=== PATIENT | female | born 1980 | race Two or more races ===

== ENCOUNTER 2025-03-29 08:12 | Emergency (ER) | payer MEDICAID, SELFPAY ==
[2025-03-29 08:25] VITALS: BP 151/88; PULSE 92; RESP 18; TEMP 36.7; O2SAT 99; BMI 57.9
--- NOTE | 2025-03-29 08:26 | XR_ITS ---
Examination: CT abdomen and pelvis without contrast. Coronal 3-D reconstructions. Sagittal 2-D reconstructions. Date and time of exam: March 29, 2025, 10:40 a.m. INDICATIONS: Lower abdominal pain today CTDI: vol (mGy): 23.1 DLP: (mGycm): 1670 Technique: Axial images of the abdomen have been obtained, 3 mm slice thickness Intravenous contrast material has not been administered. Low dose protocols were performed. One or more of the following dose reduction techniques were used; automated exposure control, adjustment of the mA and/or KV according to patient size, use of iterative reconstruction technique. Findings: No focal liver or splenic lesions No gallstones No pancreatic or adrenal mass No renal or ureteral calculi, no hydronephrosis Aorta normal size. No pericecal inflammatory change Colonic diverticulosis There is mild inflammatory change about the sigmoid colon axial image 203 Urinary bladder intact No pelvic mass IMPRESSION: Suspicious for early sigmoid diverticulitis, no diverticular abscess
--- NOTE | 2025-03-29 08:27 | PD.EDRME ---
Rapid Medical Screening Exam RME Arrival date/time: 03/29/25 08:12 45-year-old female presents to the emergency department with complaints of nausea and abdominal pain ongoing since Thursday Chief Complaint: Abdominal Pain
[2025-03-29] MEDS: KETOROLAC INJ 30 MG/ML VIAL IM (08:36)
[2025-03-29] MEDS: METOCLOPRAMIDE 5 MG TABLET 10 MG PO (08:36)
[2025-03-29 08:56] LABS: Basophils # (Auto) 0.1 Thou/mm3 (0.0-0.2); Basophils % (Auto) 1 % (0-2.5); Eosinophils # (Auto) 0.1 Thou/mm3 (0.0-0.5); Eosinophils % (Auto) 1 % (0-10); Hematocrit 34.9 % (36.0-46.0); Hemoglobin 10.9 g/dL (12.0-16.0); Immature Granulocytes Auto 0.02 Thou/mm3 (0.00-0.00); Lymphocytes # (Auto) 2.3 Thou/mm3 (1.0-4.8); Lymphocytes % (Auto) 21 % (10-50); Mean Corpuscular HGB Conc 31.2 g/dl (31.0-37.0); Mean Corpuscular Hemoglobin 25.9 pg (25.0-35.0); Mean Corpuscular Volume 83 fL (80-100); Monocytes # (Auto) 0.8 Thou/mm3 (0.0-0.8); Monocytes % (Auto) 7 % (0-12); Neutrophils # (Auto) 7.9 Thou/mm3 (1.8-7.7); Neutrophils % (Auto) 71 % (37-80); Nucleated Red Blood Cell # 0.00 Thou/mm3 (0.00-0.00); Nucleated Red Blood Cell % 0 /100 WBC (0); Platelet Count 436 Thou/mm3 (140-440); RDW Standard Deviation 46.9 fL (36.4-46.3); Red Blood Count 4.21 Miln/mm3 (4.00-5.20); White Blood Count 11.2 Thou/mm3 (3.6-11.0)
[2025-03-29 09:09] LABS: Alanine Aminotransferase < 7 U/L (10-49); Albumin, Serum 4.2 gm/dL (3.5-5.0); Albumin/Globulin Ratio 1.4 (1.2-2.2); Alkaline Phosphatase 97 U/L (46-116); Anion Gap 9 (7-16); Aspartate Amino Transferase 15 U/L (0-34); BUN/Creatinine Ratio 13 Ratio (12-20); Bilirubin,Total 0.7 mg/dL (0.3-1.2); Blood Urea Nitrogen 8 mg/dL (9-23); Calcium 9.3 mg/dL (8.3-10.6); Calcium (Corrected) 9.3 mg/dL (8.5-10.1); Carbon Dioxide 25.3 mMol/L (20.0-31.0); Chloride 102 mMol/L (98-107); Creatinine (Component) 0.6 mg/dL (0.6-1.3); Estimated Creatinine Clearance 184.3 mL/min (>60); Globulin 3.1 gm/dL (2.3-3.5); Glucose 133 mg/dL (74-106); Lipase 24 U/L (12-53); Osmolality,Calculated 272 (275-295); Potassium 4.0 mMol/L (3.4-5.1); Sodium 136 mMol/L (136-145); Total Protein 7.3 gm/dL (5.7-8.2); eGFR > 60 See Note
[2025-03-29 10:03] LABS: Collection Type, Urine Clean Catch
[2025-03-29 10:07] LABS: HCG Qualitative,Urine Negative
[2025-03-29 10:22] LABS: Bacteria,Urine Rare; Bilirubin,Urine Negative (Negative); Blood,Urine Negative (Negative); Clarity,Urine Hazy (Clear/Hazy); Color,Urine Yellow (Lt Yel-Yel); Culture Indicated,Urine Not Indicated; Glucose, Urine Negative (Negative); Ketones,Urine Negative (Negative); Leukocyte Esterase,Urine Negative (Negative); Nitrite,Urine Negative (Negative); PH,Urine 7.5 (5.0-7.0); Protein,Urine 1+ (Neg - Trace); RBC,Urine 8 /hpf (0-3); Specific Gravity,Urine 1.029 (1.001-1.035); Squamous Epithelial Cell,Urine 6 /hpf (0-5); Urobilinogen,Urine 4.0 mg/dL (0.0-1.0); WBC,Urine 2 /hpf (0-5)
--- NOTE | 2025-03-29 13:07 | EDNOTE_ITS ---
ED Abdominal Pain RME/HPI General Chief Complaint: Abdominal Pain Stated complaint: ABD PAIN Time seen by provider: 03/29/25 13:07 Arrival date/time: 03/29/25 08:12 RME / HPI RME / HPI narrative: 03/29/25 08:12 45-year-old female presents to the emergency department with complaints of nausea and abdominal pain ongoing since Thursday Related Data Previous Rx's ?Medication ?Instructions ?Recorded dicyclomine 20 mg tablet 20 mg PO Q8HR PRN Abdominal cramps 03/21/19 #10 tabs ondansetron 4 mg disintegrating 4 mg PO Q8H PRN nausea and 03/21/19 tablet vomiting #5 tabs hydrocodone 5 mg-acetaminophen 325 1 tab PO BID PRN pa in #10 tabs 01/05/ mg tablet ([place]) acetaminophen 325 mg capsule 975 mg (3 x 325 mg) PO Q6 H PRN 06/13/20 pain #30 caps azithromycin 250 mg tablet See Rx Instructions PO .COM PLEX #6 06/13/20 tabs dexamethasone 6 mg tablet 6 mg PO QDAY #7 tabs 06/17/ 1 (Decadron) acetaminophen 300 mg-codeine 30 mg 1 tab PO Q6H PRN pa in #3 tabs 03/29/25 tablet amoxicillin 875 mg-potassium 1 tab PO Q8H 10 days #30 tabs 03/29/25 clavulanate 125 mg tablet ondansetron 4 mg disintegrating 4 mg PO Q8H PRN nausea and 03/29/25 tablet vomiting #12 tabs Allergies Allergy/AdvReac Type Severity Reaction Status Date / Time No Known Allergies Allergy Verified 03/29/25 08:14 Past Medical History Past Medical History CARDIAC: Negative Congestive Heart Failure RESPIRATORY: Negative Chronic Obstructive Pulmonary Disease (COPD) GASTROINTESTINAL: Positive Obesity GENITOURINARY: Negative Renal Disease ENDOCRINE: Negative Diabetes Mellitus Type 1 or Diabetes Mellitus Type 2 Family History FAMILY HISTORY: Negative Family Neurologic Problems Surgical History SURGICAL: Positive Abdominal Surgery Social History SMOKING STATUS: Never smoker SUBSTANCE USE: does not use ED Exam Narrative Physical exam: Constitutional: Patient alert and oriented. Well appearing. No acute distress. Not toxic appearing. Head: Normocephalic, atraumatic. Eyes: Periorbital regions bilaterally normal to inspection. Conjunctiva clear bilaterally. Sclera anicteric bilaterally. Pupils equal, round, reactive to light bilaterally. Extraocular movements intact bilaterally. Mouth/Throat: Mucous membranes moist. No stridor or muffled voice. No trismus. Handling secretions without difficulty. Airway widely patent. Neck: Supple. Trachea midline. No JVD. No nuchal rigidity. Normal range of motion. Respiratory: Normal effort. No accessory muscle use or respiratory distress. Lungs clear to auscultation bilaterally without rhonchi, wheezes, or crackles. Cardiovascular: RRR. Normal S1/S2. No murmurs or rubs. Radial pulses intact bilaterally. Abdomen: Soft. Non-distended. Positive mild left lower quadrant tenderness to palpation. No pulsatile mass. No guarding or rebound. Negative Trotter?s sign. Negative McBurney?s point tenderness. Negative Rovsing?s. Back: No midline tenderness or step-offs. No CVA tenderness to palpation bilaterally. Upper Extremities: No gross deformities. Lower Extremities: No gross deformities. No edema or calf tenderness. Neuro: Speech normal. No gross motor or sensory deficits to upper or lower extremities bilaterally. GCS 15. CN II?XII grossly intact. Skin: Warm, dry, normal color. Psych: Normal affect. Cooperative. Normal insight. Course Course Course Narrative: MDM 45-year-old healthy female presents to the ER complaining of abdominal pain and nausea for the past 3 days. Denies diarrhea, vomiting, fever. Concern for uncomplicated diverticulitis with mild inflammatory changes of the sigmoid colon White blood cell count minimally elevated 11 Glucose minimally elevated 133 otherwise no severe metabolic or electrolyte abnormality UA with protein, rare bacteria microscopic hematuria with 8 RBCs and 6 squamous cells concerning for contamination CT without signs of abscess or perforation, modified Hinchey score of 1 Plan for low fiber diet, Augmentin, follow-up with PMD in 1 to 2 days, follow-up with GI within 6 weeks for colonoscopy, strict ER return precautions advised Quality Measures none Orders Category Date Time Status CT abdomen pelvis wo con Stat Exams 03/29/25 08:26 Completed CBC Stat Lab 03/29/25 08:33 Completed Comprehensive Metabolic Panel Stat Lab 03/29/25 08:33 Completed HCG Qualitative,Urine Stat Lab 03/29/25 09:45 Completed Lipase Stat Lab 03/29/25 08:33 Completed UA, C/S IF [Urinalysis, C/S if Indicated] Stat Lab 03/29/25 09:45 Completed Amoxicillin/Pot Clav 875 [Augmentin 875] Med 03/29/25 13:16 Discontinued 1 tab PO X1 ONE HYDROcodone*/APAP 5/325 [[place] 5/325] Med 03/29/25 13:17 Discontinued 1 tab PO X1 ONE Ketorolac Inj [Toradol Inj] Med 03/29/25 08:27 Discontinued 30 mg IM X1 ONE Metoclopramide [Reglan] Med 03/29/25 08:27 Discontinued 10 mg PO X1 ONE Reevaluation(s) Reevaluation #1: At the time of reassessment, the patient remains alert and oriented ?3 with GCS 15. Vitals are normal, pain is controlled, and the patient is tolerating oral intake without nausea or vomiting. The patient is agreeable to discharge and verbalizes understanding of the diagnosis, studies, treatment plan, medications (including side effects/precautions), and strict ER return precautions as discussed in the ED. All concerns were addressed, and the patient is comfortable with the plan. Abdomen remains soft and nontender to palpation without peritonitis. Vital Signs Vital signs: Vital Signs Temperature 98.1 F 03/29/25 08:25 Pulse Rate 92 03/29/25 08:25 Respiratory Rate 18 03/29/25 08:25 Blood Pressure 151/88 H 03/29/25 08:25 Pulse Oximetry (%) 99 03/29/25 08:25 Oxygen Delivery Method Room Air 03/29/25 08:25 Abdominal Pain MDM MDM Narrative MDM Narrative:: As noted in course Patient data External records reviewed:: None Clinical information provided by:: patient Social determinants that could affect healthcare access:: none Patient has the following chronic illnesses:: As noted How is presenting disease/condition affected by chronic disease/condition?: uneffected by Evaluation data The following diagnostics were reviewed and interpreted by me:: lab results and radiology exam(s) Lab and/or radiology exams considered but not ordered:: Ordered Interpretation Summary: Reviewed Medications / Prescriptions Medications or Prescriptions considered but not ordered:: Ordered Medication administrations:: Medication Administration History Discontinued Medications Hydrocodone Bitart/Acetaminophen (Hydrocodone/Apap 5/325 Tablet) 1 tab PO X1 ONE Stop: 03/29/25 13:18 Last Admin: 03/29/25 13:24 Dose: 1 tab Documented By: EF Amoxicillin/Clavulanate Potassium (Amoxicillin/Pot Clav 875 Tablet) 1 tab PO X1 ONE Stop: 03/29/25 13:17 Last Admin: 03/29/25 13:24 Dose: 1 tab Documented By: EF Ketorolac Tromethamine (Ketorolac Inj 30 Mg/Ml Vial) 30 mg IM X1 ONE Stop: 03/29/25 08:28 Last Admin: 03/29/25 08:36 Dose: 30 mg Documented By: EF Metoclopramide HCl (Metoclopramide 5 Mg Tablet) 10 mg PO X1 ONE Stop: 03/29/25 08:28 Last Admin: 03/29/25 08:36 Dose: 10 mg Documented By: EF Ordered Consultations Consultation(s) initiated? (list below): No Diagnosis Differential diagnosis abdominal pain: abdominal pain Most likely diagnosis given after review of the tests above:: As noted Admission Indicated Admission indicated?: not indicated Admission Request Was there a request for admission?: No Disposition Plan Disposition Plan: Discharge Discharge Attestation Discharge Attestation: The patient and all family members were given an opportunity to ask questions and understood the discharge instructions. Discharge instructions specifically effects, indications for sooner follow up or return to the emergency department, and the expected course of current diagnosis. Patient condition: Stable Discharge Plan Prescriptions/Referrals Prescriptions/Med Rec: New amoxicillin-pot clavulanate 875-125 mg tablet 1 tab PO Q8H 10 Days Qty: 30 0RF acetaminophen-codeine 300-30 mg tablet 1 tab PO Q6H PRN (Reason: pain) Qty: 3 0RF ondansetron 4 mg tablet,disintegrating 4 mg PO Q8H PRN (Reason: nausea and vomiting) Qty: 12 0RF Rx Instructions: 1-2 tabs PO Q8Hr prn nausea or vomit No Action dicyclomine 20 mg tablet 20 mg PO Q8HR PRN (Reason: Abdominal cramps) Qty: 10 0RF ondansetron 4 mg tablet,disintegrating 4 mg PO Q8H PRN (Reason: nausea and vomiting) Qty: 5 0RF hydrocodone-acetaminophen [[place]] 5-325 mg tablet 1 tab PO BID MDD 10mg PRN (Reason: pain) Qty: 10 0RF azithromycin 250 mg tablet See Rx Instructions .ROUTE .COMPLEX Qty: 6 0RF Rx Instructions: take 500 mg today (day 1), then 250 mg for 4 days (days 2-5) acetaminophen 325 mg capsule 975 mg PO Q6H PRN (Reason: pain) Qty: 30 0RF dexamethasone [Decadron] 6 mg tablet 6 mg PO QDAY Qty: 7 0RF Referrals: Henri [facility] [Primary Care Provider] - In 1 week Problem List Clinical Impression: Diverticulitis Patient/Caregiver Discharge Instructions Diet Instructions: Clear liquid diet advance as tolerated, low fiber diet. Education Materials: ED Diverticulitis Additional Instructions: Follow up with your primary medical doctor within 24 hours. Return to the Emergency Room immediately for any new, worsening, continuing symptoms or any concerns at all. Return to the Emergency Room within 24 hours if you are unable to follow up with your primary medical doctor within 24 hours. Follow-up with a GI doctor this week as well as you will need a colonoscopy within 6 weeks. Print Language: Singaporean PA/REYNOLD Supervising Physician PA/MANAGER MONEY Supervising Physician: Dr. Morrell
[2025-03-29] MEDS: AMOXICILLIN/POT CLAV 875 TABLET 1 TAB PO (13:24)
[2025-03-29] MEDS: HYDROcodone/APAP 5/325 TABLET 1 TAB PO (13:24)
== END 2025-03-29 13:34 | disposition home health service (06) ==
LOC: SERX 09:02
PROVIDERS: Nurse Practitioner Primary Care; Emergency Provider Emergency Medicine; PCP Physician Assistant
DX: K57.32 Diverticulitis of large intestine without perforation or abscess without bleeding (principal)
CPT/HCPCS: 36415; 74176; 80053; 81001; 81025; 83690; 85025; 96372; 99283; J1885; A9270

== ENCOUNTER 2025-04-04 08:15 | Emergency (ER) | payer MEDICAID, SELFPAY ==
[2025-04-04 08:20] VITALS: BP 144/96; PULSE 85; RESP 18; TEMP 36.9; O2SAT 95
--- NOTE | 2025-04-04 08:25 | XR_ITS ---
Examination: CT abdomen and pelvis without contrast. Coronal 3-D reconstructions. Sagittal 2-D reconstructions. Date and time of exam: April 04, 2025, 1038 hours, comparison March 29, 2025 INDICATIONS: Onset generalized abdominal pain today CTDI: vol (mGy): 22.1 DLP: (mGycm): 1545 Technique: Axial images of the abdomen have been obtained, 3 mm slice thickness Intravenous contrast material has not been administered. Low dose protocols were performed. One or more of the following dose reduction techniques were used; automated exposure control, adjustment of the mA and/or KV according to patient size, use of iterative reconstruction technique. Findings: No focal liver or splenic lesions No gallstones No pancreatic or adrenal mass No renal or ureteral calculi, no hydronephrosis Aorta normal size No bowel obstruction No pericecal inflammatory change Mild inflammatory change in the sigmoid colon No peridiverticular abscess No pelvic mass Contracted urinary bladder Diffuse advanced lumbar degenerative disc disease IMPRESSION: Suspicious for early acute sigmoid diverticulitis, no peridiverticular abscess
--- NOTE | 2025-04-04 08:26 | PD.EDRME ---
Rapid Medical Screening Exam RME Arrival date/time: 04/04/25 08:15 45-year-old female with no known medical history presents to the emergency room with a chief complaint of left lower quadrant abdominal pain x 4 days I have greeted and performed a focused initial assessment of this patient. A comprehensive ED assessment and evaluation of the patient, analysis of all test results, and completion of the medical decision making process will be conducted by additional ED providers. Chief Complaint: Abdominal Pain Vital signs: Vital Signs Temperature 98.5 F 04/04/25 08:20 Pulse Rate 85 04/04/25 08:20 Respiratory Rate 18 04/04/25 08:20 Blood Pressure 144/96 H 04/04/25 08:20 Pulse Oximetry (%) 95 04/04/25 08:20 Oxygen Delivery Method Room Air 04/04/25 08:20 Vital signs reviewed by provider: Yes
[2025-04-04 08:50] LABS: Basophils # (Auto) 0.0 Thou/mm3 (0.0-0.2); Basophils % (Auto) 1 % (0-2.5); Eosinophils # (Auto) 0.1 Thou/mm3 (0.0-0.5); Eosinophils % (Auto) 1 % (0-10); Hematocrit 35.9 % (36.0-46.0); Hemoglobin 11.4 g/dL (12.0-16.0); Immature Granulocytes Auto 0.01 Thou/mm3 (0.00-0.00); Lymphocytes # (Auto) 1.0 Thou/mm3 (1.0-4.8); Lymphocytes % (Auto) 18 % (10-50); Mean Corpuscular HGB Conc 31.8 g/dl (31.0-37.0); Mean Corpuscular Hemoglobin 26.2 pg (25.0-35.0); Mean Corpuscular Volume 83 fL (80-100); Monocytes # (Auto) 0.7 Thou/mm3 (0.0-0.8); Monocytes % (Auto) 12 % (0-12); Neutrophils # (Auto) 4.0 Thou/mm3 (1.8-7.7); Neutrophils % (Auto) 68 % (37-80); Nucleated Red Blood Cell # 0.00 Thou/mm3 (0.00-0.00); Nucleated Red Blood Cell % 0 /100 WBC (0); Platelet Count 336 Thou/mm3 (140-440); RDW Standard Deviation 46.4 fL (36.4-46.3); Red Blood Count 4.35 Miln/mm3 (4.00-5.20); White Blood Count 5.9 Thou/mm3 (3.6-11.0)
[2025-04-04] MEDS: ONDANSETRON ODT 4 MG TABRAP PO (08:55)
[2025-04-04] MEDS: HYDROcodone/APAP 5/325 TABLET 1 TAB PO (08:55)
[2025-04-04 09:15] LABS: Collection Type, Urine Clean Catch
[2025-04-04 09:23] LABS: Bilirubin,Urine Negative (Negative); Blood,Urine Negative (Negative); Color,Urine Yellow (Lt Yel-Yel); Glucose, Urine Negative (Negative); Ketones,Urine Trace (Negative); Leukocyte Esterase,Urine Positive (Negative); Nitrite,Urine Negative (Negative); PH,Urine 6.5 (5.0-7.0); Protein,Urine Trace (Neg - Trace); RBC,Urine 9 /hpf (0-3); Specific Gravity,Urine 1.020 (1.001-1.035); Squamous Epithelial Cell,Urine 7 /hpf (0-5); Urobilinogen,Urine 2.0 mg/dL (0.0-1.0); WBC,Urine 4 /hpf (0-5)
[2025-04-04 09:35] LABS: Clarity,Urine Hazy (Clear/Hazy)
[2025-04-04 09:39] LABS: HCG Qualitative,Urine Negative
[2025-04-04 09:42] LABS: Alanine Aminotransferase 16 U/L (10-49); Alkaline Phosphatase 81 U/L (46-116); Anion Gap 8 (7-16); Aspartate Amino Transferase 32 U/L (0-34); BUN/Creatinine Ratio 10 Ratio (12-20); Bilirubin,Total 0.4 mg/dL (0.3-1.2); Blood Urea Nitrogen 7 mg/dL (9-23); Calcium 8.9 mg/dL (8.3-10.6); Carbon Dioxide 27.3 mMol/L (20.0-31.0); Chloride 102 mMol/L (98-107); Creatinine (Component) 0.7 mg/dL (0.6-1.3); Estimated Creatinine Clearance 158.3 mL/min (>60); Glucose 111 mg/dL (74-106); Lipase 24 U/L (12-53); Osmolality,Calculated 272 (275-295); Potassium 4.4 mMol/L (3.4-5.1); Sodium 137 mMol/L (136-145); Total Protein 7.1 gm/dL (5.7-8.2); eGFR > 60 See Note
[2025-04-04 09:58] LABS: Albumin, Serum 4.2 gm/dL (3.5-5.0); Albumin/Globulin Ratio 1.4 (1.2-2.2); Calcium (Corrected) 8.9 mg/dL (8.5-10.1); Globulin 2.9 gm/dL (2.3-3.5)
[2025-04-04 11:16] VITALS: BP 130/80; PULSE 62; RESP 18; TEMP 36.8; O2SAT 97
--- NOTE | 2025-04-04 11:31 | PC.NURSE ---
Patient presents to ED with c/o lower abd pain and nausea since , denies constipation/diarrhea. Patient a/o x4, ambulatory w/o assisstance. Patient updated with plan of care pending MD review.
--- NOTE | 2025-04-04 11:51 | PD.EDABDPN ---
ED Abdominal Pain RME/HPI General Chief Complaint: Abdominal Pain Stated complaint: ABD PAIN AND BLOATING Time seen by provider: 04/04/25 11:43 Arrival date/time: 04/04/25 08:15 Limitations: no limitations RME / HPI RME / HPI narrative: 04/04/25 08:15 45-year-old female with no known medical history presents to the emergency room with a chief complaint of left lower quadrant abdominal pain x 4 days I have greeted and performed a focused initial assessment of this patient. A comprehensive ED assessment and evaluation of the patient, analysis of all test results, and completion of the medical decision making process will be conducted by additional ED providers. Dr. Dhaliwal evaluation. Patient is a 45-year-old female medical history notable for chronic back pain that seen emerged primary concerns for abdominal pain. Denies fevers chills nausea vomiting dysuria hematuria melena bloody stools drugs alcohol smoking recent travel sick contacts Related Data Previous Rx's ?Medication ?Instructions ?Recorded dicyclomine 20 mg tablet 20 mg PO Q8HR PRN Abdominal cramps 03/21/19 #10 tabs ondansetron 4 mg disintegrating 4 mg PO Q8H PRN nausea and 03/21/19 tablet vomiting #5 tabs hydrocodone 5 mg-acetaminophen 325 1 tab PO BID PRN pain #10 tabs 01/05/ mg tablet ([place]) acetaminophen 325 mg capsule 975 mg (3 x 325 mg) PO Q6H PRN 06/13/20 pain #30 caps azithromycin 250 mg tablet See Rx Instructions PO .COMPLEX #6 06/13/20 tabs dexamethasone 6 mg tablet 6 mg PO QDAY #7 tabs 06/17/20 (Decadron) acetaminophen 300 mg-codeine 30 mg 1 tab PO Q6H PRN pain #3 tabs 03/29/25 tablet amoxicillin 875 mg-potassium 1 tab PO Q8H 10 days #30 tabs 03/29/25 clavulanate 125 mg tablet ondansetron 4 mg disintegrating 4 mg PO Q8H PRN nausea and 03/29/25 tablet vomiting #12 tabs ciprofloxacin HCl 500 mg tablet 500 mg PO Q12H 5 days #10 tabs 04/04/25 metronidazole 500 mg tablet 500 mg PO Q8H #15 tabs 04/04/25 polyethylene glycol 3350 17 4 g PO QDAY #119 grams 04/04/25 gram/dose oral powder (Miralax) Allergies Allergy/AdvReac Type Severity Reaction Status Date / Time No Known Allergies Allergy Verified 04/04/25 08:18 ED Exam General Limitations: Present no limitations General appearance: Present alert and in no apparent distress Head Head exam: Present atraumatic and normocephalic Eye Eye exam: Present normal appearance and PERRL ENT ENT exam: Present normal exam Neck Neck exam: Present normal inspection Chest Chest inspection: Present symmetric chest wall rise Respiratory Respiratory exam: Absent respiratory distress Cardiovascular Cardiovascular exam: Present regular rate and normal rhythm Abdominal Exam Abdominal exam: Present tenderness (Left lower quadrant); Absent distention Extremities Exam Extremities exam: Present normal inspection Neurological Exam Neurological exam: Present alert, oriented X3, CN II-XII intact and other (No gross focal neurodeficit) Psychiatric Psychiatric exam: Present normal affect Course Quality Measures none Orders Category Date Time Status CT abdomen pelvis wo con Stat Exams 04/04/25 08:25 Completed CBC Stat Lab 04/04/25 08:40 Completed CMP [Comprehensive Metabolic Panel] Stat Lab 04/04/25 08:40 Completed HCG Qualitative,Urine Stat Lab 04/04/25 09:07 Completed Lipase Stat Lab 04/04/25 08:40 Completed UA [Urinalysis] Stat Lab 04/04/25 09:07 Completed Urine Culture Stat Lab 04/04/25 09:07 Received Ciprofloxacin HCl [Ciprofloxacin] Med 04/04/25 12:03 Discontinued 500 mg PO X1 ONE HYDROcodone*/APAP 5/325 [[place] 5/325] Med 04/04/25 08:26 Discontinued 1 tab PO X1 ONE Ketorolac Inj [Toradol Inj] Med 04/04/25 12:14 Discontinued 15 mg IM X1 ONE Ondansetron Odt [Zofran Odt] Med 04/04/25 08:26 Discontinued 4 mg PO X1 ONE metroNIDAZOLE [Flagyl] Med 04/04/25 12:03 Discontinued 500 mg PO X1 ONE Vital Signs Vital signs: Vital Signs Temperature 98.5 F 04/04/25 08:20 Pulse Rate 85 04/04/25 08:20 Respiratory Rate 18 04/04/25 08:20 Blood Pressure 144/96 H 04/04/25 08:20 Pulse Oximetry (%) 95 04/04/25 08:20 Oxygen Delivery Method Room Air 04/04/25 08:20 Abdominal Pain [facility] Narrative [facility] Narrative:: Patient is a 45-year-old female seen emerged from concerns for abdominal pain. Vital signs and exam as listed. Prior provider evaluated patient. Concern for urinary tract infection, pancreatitis, diverticulitis recurrence, urolithiasis among others. Ordered labs CT abdomen pelvis. Labs without acute hematologic abnormality, no significant acute metabolic disturbance, lipase not elevated urinalysis leukocyte Estrace positive for white blood cells 9 red blood cells 7 squamous cells no bacteria no nitrite patient without dysuria less likely urinary tract infection. CT abdomen pelvis without contrast notable for possible early sigmoid diverticulitis. On my evaluation patient hemodynamically stable not distressed. Provided her with additional dose of pain medication. Patient states that she has been on amoxicillin for couple days, advised her that I was changing her antibiotics recommended that she sees a wood finisher as well as her primary care doctor. Advised her to avoid opiates given that they contribute to constipation. Advised her on increasing her fiber intake, and fluid intake to avoid constipation. Patient is hemodynamically stable nondistressed with discharge home close return precautions follow-up with her primary care doctor. All questions answered Patient data External records reviewed:: [facility] previous records Clinical information provided by:: patient Social determinants that could affect healthcare access:: none Patient has the following chronic illnesses:: None How is presenting disease/condition affected by chronic disease/condition?: uneffected by Evaluation data The following diagnostics were reviewed and interpreted by me:: lab results and radiology exam(s) Lab and/or radiology exams considered but not ordered:: None Interpretation Summary: See MDM Medications / Prescriptions Medications or Prescriptions considered but not ordered:: None Medication administrations:: Medication Administration History Discontinued Medications Hydrocodone Bitart/Acetaminophen (Hydrocodone/Apap 5/325 Tablet) 1 tab PO X1 ONE Stop: 04/04/25 08:27 Last Admin: 04/04/25 08:55 Dose: 1 tab Documented By: GM Ciprofloxacin (Ciprofloxacin Hcl 250 Mg Tablet) 500 mg PO X1 ONE Stop: 04/04/25 12:04 Last Admin: 04/04/25 12:39 Dose: 500 mg Documented By: OA Ketorolac Tromethamine (Ketorolac Inj 30 Mg/Ml Vial) 15 mg IM X1 ONE Stop: 04/04/25 12:15 Last Admin: 04/04/25 12:38 Dose: 15 mg Documented By: OA Metronidazole (Metronidazole 250 Mg Tablet) 500 mg PO X1 ONE Stop: 04/04/25 12:04 Last Admin: 04/04/25 12:39 Dose: 500 mg Documented By: ASHWIN Ondansetron HCl (Ondansetron Odt 4 Mg Tabrap) 4 mg PO X1 ONE; Protocol Stop: 04/04/25 08:27 Last Admin: 04/04/25 08:55 Dose: 4 mg Documented By: GM See above Consultations Consultation(s) initiated? (list below): No Diagnosis Differential diagnosis abdominal pain: other Most likely diagnosis given after review of the tests above:: Diverticulitis, abdominal pain Admission Indicated Admission indicated?: not indicated Admission Request Was there a request for admission?: No Disposition Plan Disposition Plan: Discharge Discharge Attestation Discharge Attestation: The patient and all family members were given an opportunity to ask questions and understood the discharge instructions. Discharge instructions specifically effects, indications for sooner follow up or return to the emergency department, and the expected course of current diagnosis. Patient condition: Stable Discharge Plan Plan Patient Disposition: HOME (Self Care) Prescriptions/Referrals Prescriptions/Med Rec: New ciprofloxacin HCl 500 mg tablet 500 mg PO Q12H 5 Days Qty: 10 0RF metronidazole 500 mg tablet 500 mg PO Q8H Qty: 15 0RF polyethylene glycol 3350 [Miralax] 17 gram/dose powder 4 g PO QDAY Qty: 119 0RF No Action dicyclomine 20 mg tablet 20 mg PO Q8HR PRN (Reason: Abdominal cramps) Qty: 10 0RF ondansetron 4 mg tablet,disintegrating 4 mg PO Q8H PRN (Reason: nausea and vomiting) Qty: 5 0RF hydrocodone-acetaminophen [[place]] 5-325 mg tablet 1 tab PO BID MDD 10mg PRN (Reason: pain) Qty: 10 0RF azithromycin 250 mg tablet See Rx Instructions .ROUTE .COMPLEX Qty: 6 0RF Rx Instructions: take 500 mg today (day 1), then 250 mg for 4 days (days 2-5) acetaminophen 325 mg capsule 975 mg PO Q6H PRN (Reason: pain) Qty: 30 0RF dexamethasone [Decadron] 6 mg tablet 6 mg PO QDAY Qty: 7 0RF amoxicillin-pot clavulanate 875-125 mg tablet 1 tab PO Q8H 10 Days Qty: 30 0RF acetaminophen-codeine 300-30 mg tablet 1 tab PO Q6H PRN (Reason: pain) Qty: 3 0RF ondansetron 4 mg tablet,disintegrating 4 mg PO Q8H PRN (Reason: nausea and vomiting) Qty: 12 0RF Rx Instructions: 1-2 tabs PO Q8Hr prn nausea or vomit Referrals: No Primary/Family,Physician [Primary Care Provider] - In 1 week Problem List Clinical Impression: Diverticulitis Patient/Caregiver Discharge Instructions Education Materials: Diverticulosis Diverticulitis Additional Instructions: Your CT scan today showed early diverticulitis. We are starting you on antibiotics. Please take your antibiotics as prescribed. Follow-up with your primary care doctor as well as a wood finisher. Return immediately if worsening symptoms or new symptoms of concern. Farmer tomograf?a computarizada de hoy mostr? diverticulitis temprana. Le estamos dando antibi?ticos. T?melos seg?n lo prescrito. Acuda a farmer m?dico de cabecera y a un gastroenter?logo. Regrese de inmediato si los s?ntomas empeoran o aparecen nuevos s?ntomas preocupantes. Print Language: Korean Stand Alone Forms: [employer] Award Info., Patient Portal Info Letter
[2025-04-04] MEDS: KETOROLAC INJ 30 MG/ML VIAL 15 MG IM (12:38)
[2025-04-04] MEDS: CIPROFLOXACIN HCL 250 MG TABLET 500 MG PO (12:39)
== END 2025-04-04 13:16 | disposition home or self-care (01) ==
PROVIDERS: Nurse Practitioner Family; Emergency Provider Emergency Medicine
DX: K57.32 Diverticulitis of large intestine without perforation or abscess without bleeding (principal); G89.29 Other chronic pain
CPT/HCPCS: 36415; 74176; 80053; 81001; 81025; 83690; 85025; 87086; 96372; 99282; J1885; Q0162; A9270